=== PATIENT | male | born 1935 | race Caucasian/White ===

== ENCOUNTER 2019-09-01 13:18 | Observation (INO) ==
[2019-09-01] MEDS ORDERED: LACTATED RINGERS 500 ML IV ONE (13:57)
[2019-09-01 14:15] LABS: Basophils # 0.1 10*3/uL (0.0-0.2); Basophils % 0.9 % (0.0-0.8); Eosinophils # 0.1 10*3/uL (0.0-0.87); Hematocrit 39.9 VOL% (42.0-52.0); Hemoglobin 13.1 GM/DL (14.0-18.0); Immature Granulocytes Absolute 0.07 #; Lymphocytes # 1.2 10*3/uL (1.4-4.0); Lymphocytes % 17.8 % (21.2-54.2); Mean Corpuscular HGB Conc 32.8 GM/DL (32-36); Mean Corpuscular Volume 91.9 FL (87-102); Mean Platelet Volume 10.5 FL (9.6-12.0); Monocytes % 12.1 % (1.7-12.7); Neutrophils % 67.2 % (38.7-73.9); Platelet Count 199 T/CUMM (130-400); Red Blood Count 4.34 MC/CUMM (3.8-5.5); Red Cell Distribution Width 13.4 % (9.3-17.3); White Blood Count 6.9 T/CUMM (4-12)
[2019-09-01 14:29] LABS: Albumin 3.6 G/DL (3.4-5.0); Bilirubin,Total 0.4 MG/DL (0.2-1.0); Calcium 8.6 MG/DL (8.5-10.1); Osmolality,Calculated 286.5 MOS/KG (273-304); Total Protein 6.8 G/DL (6.4-8.3)
[2019-09-01] MEDS ORDERED: ACETAMINOPHEN 325 MG TABLET PO PRN (15:32)
[2019-09-01] MEDS ORDERED: SODIUM CHLORIDE 0.45% 1,000 ML IV SCH (16:00)
[2019-09-01 16:46] LABS: Apearance,Urine CLEAR (Clear); Bacteria,Urine Occasional /HPF (Few); Bilirubin,Urine Negative (Negative); Blood, Urine Negative (Negative); Glucose,Urine (UA) Negative (Negative); Hyaline Casts,Urine 5 /LPF (0-3); Ketones,Urine Negative (Negative); Mucus,Urine Occasional /LPF (Occasional); Nitrite,Urine Negative (Negative); Protein,Urine Negative; RBC,Urine 3 /HPF (0-4); Squamous Epithelial Cell,Urine Occasional /HPF (0-10); Urine Color Straw (Yellow); Urine Specific Gravity 1.006 (1.001-1.035); Urine Urobilinogen < 2.0 EU/DL (0.2-1.0); WBC,Urine 1 /HPF (0-6)
[2019-09-01] MEDS ORDERED: INFLUENZA VIRUS VACCINE 0.5 ML SYRINGE IM ONE (17:25)
[2019-09-01] MEDS: HEPARIN 5,000 UNIT/1 ML VIAL SUBCUT SCH (17:34)
[2019-09-01] MEDS: KETOROLAC 0.5% OPH SOLN 5 ML BOTTLE LEFT EYE SCH ×2 (17:44→21:14)
[2019-09-01] MEDS ORDERED: PANTOPRAZOLE 40 MG TABLET PO SCH (21:00)
[2019-09-01] MEDS ORDERED: ATORVASTATIN 10 MG TABLET PO SCH (21:00)
[2019-09-01] MEDS ORDERED: DONEPEZIL 10 MG TABLET PO SCH (21:00)
[2019-09-01] MEDS: MAGNESIUM CHLORIDE 64 MG TABLET PO SCH (21:12)
[2019-09-01] MEDS: DOCUSATE SODIUM 100 MG CAPSULE PO SCH (21:13)
[2019-09-01] MEDS: MEMANTINE 10 MG TABLET PO SCH (21:13)
[2019-09-02] MEDS: HEPARIN 5,000 UNIT/1 ML VIAL SUBCUT SCH ×2 (00:43→09:11)
[2019-09-02 04:48] LABS: Basophils % 0.6 % (0.0-0.8); Eosinophils # 0.1 10*3/uL (0.0-0.87); Eosinophils % 1.1 % (0.00-10.9); Hematocrit 35.4 VOL% (42.0-52.0); Hemoglobin 11.4 GM/DL (14.0-18.0); Immature Granulocytes % 0.5 %; Immature Granulocytes Absolute 0.03 #; Lymphocytes # 1.6 10*3/uL (1.4-4.0); Lymphocytes % 24.3 % (21.2-54.2); Mean Corpuscular HGB Conc 32.2 GM/DL (32-36); Mean Corpuscular Volume 92.9 FL (87-102); Mean Platelet Volume 10.7 FL (9.6-12.0); Monocytes % 13.4 % (1.7-12.7); Neutrophils % 60.1 % (38.7-73.9); Platelet Count 168 T/CUMM (130-400); Red Blood Count 3.81 MC/CUMM (3.8-5.5); Red Cell Distribution Width 13.5 % (9.3-17.3); White Blood Count 6.5 T/CUMM (4-12)
[2019-09-02 05:39] LABS: Alanine Aminotransferase 16 U/L (16-61); Albumin 2.9 G/DL (3.4-5.0); Alkaline Phosphatase 76 U/L (45-117); Aspartate Amino Transferase 14 U/L (0-37); Bilirubin,Total < 0.39 MG/DL (0.2-1.0); Blood Urea Nitrogen 23 MG/DL (7-18); Calcium 8.1 MG/DL (8.5-10.1); Estimated Glom Filtration Rate 59 ML/MIN; Glucose 128 MG/DL (74-106); HDL Cholesterol 48 MG/DL (40-60); Osmolality,Calculated 280.7 MOS/KG (273-304); Risk Ratio 2.63; Total Protein 5.9 G/DL (6.4-8.3); Triglycerides 112 MG/DL (2-150); VLDL CHOLESTEROL 22.4 MG/DL
[2019-09-02] MEDS ORDERED: LEVOTHYROXINE 75 MCG TABLET PO SCH (06:30)
[2019-09-02] MEDS ORDERED: ASPIRIN EC 325 MG TABLET PO SCH (09:00)
[2019-09-02] MEDS ORDERED: PANTOPRAZOLE 40 MG TABLET PO SCH (09:00)
[2019-09-02] MEDS ORDERED: carvediloL 3.125 MG TABLET PO SCH (09:00)
[2019-09-02] MEDS: KETOROLAC 0.5% OPH SOLN 5 ML BOTTLE LEFT EYE SCH (09:11)
[2019-09-02] MEDS: DOCUSATE SODIUM 100 MG CAPSULE PO SCH (09:12)
[2019-09-02] MEDS: MAGNESIUM CHLORIDE 64 MG TABLET PO SCH (09:12)
[2019-09-02] MEDS: MEMANTINE 10 MG TABLET PO SCH (09:12)
[2019-09-02 12:34] VITALS: BP 137/70
== END 2019-09-02 12:58 | disposition home or self-care (01) ==
LOC: N.EDINP 13:18 → N.ED 13:18 → N.EDINP 17:00 → N.TELES 17:17
PROVIDERS: ADMIT Internal Medicine; ATTEND Internal Medicine

== ENCOUNTER 2021-10-09 19:28 | Observation (INO) ==
[2021-10-09] MEDS ORDERED: SODIUM CHLORIDE 0.9% 500 ML IV STA (20:13)
[2021-10-09 21:12] LABS: Basophils % 0.6 % (0.0-0.8); Eosinophils # 0.1 10*3/uL (0.0-0.87); Hematocrit 39.4 VOL% (42.0-52.0); Immature Granulocytes % 0.9 %; Immature Granulocytes Absolute 0.06 #; Lymphocytes # 1.2 10*3/uL (1.4-4.0); Lymphocytes % 19.2 % (21.2-54.2); Mean Corpuscular Volume 89.5 FL (87-102); Mean Platelet Volume 10.7 FL (9.6-12.0); Monocytes % 13.4 % (1.7-12.7); Neutrophils % 63.9 % (38.7-73.9); Platelet Count 197 T/CUMM (130-400); Red Cell Distribution Width 13.2 % (9.3-17.3); White Blood Count 6.5 T/CUMM (4-12)
[2021-10-09 21:21] LABS: Bilirubin,Urine Negative (Negative); Blood, Urine Negative (Negative); Glucose,Urine (UA) Negative (Negative); Hyaline Casts,Urine 1 /LPF (0-3); Ketones,Urine Negative (Negative); Nitrite,Urine Negative (Negative); Protein,Urine Negative; RBC,Urine 2 /HPF (0-4); Urine Appearance CLEAR (Clear); Urine Color Straw (Yellow); Urine Specific Gravity 1.008 (1.001-1.035); Urine Urobilinogen < 2.0 EU/DL (0.2-1.0)
[2021-10-09 21:37] LABS: Alanine Aminotransferase 17 U/L (16-61); Albumin 3.3 G/DL (3.4-5.0); Alkaline Phosphatase 88 U/L (45-117); Aspartate Amino Transferase 16 U/L (0-37); Blood Urea Nitrogen 28 MG/DL (7-18); Calcium 8.7 MG/DL (8.5-10.1); Carbon Dioxide 26 MMOL/L (21-32); Estimated Glom Filtration Rate 43 ML/MIN; Glucose 131 MG/DL (74-106); Osmolality,Calculated 286.4 MOS/KG (273-304); Sodium 140 MMOL/L (136-145); Total Protein 6.7 G/DL (6.4-8.2)
[2021-10-09 21:43] LABS: Barbiturates Screen,Urine Negative (Negative); Benzodiazepines Screen,Urine Negative (Negative); Cannabinoid Screen,Urine Negative (Negative); Opiate Screen,Urine Negative (Negative); Phencyclidine Screen,Urine Negative (Negative)
[2021-10-09] MEDS ORDERED: LACTATED RINGERS 500 ML IV ONE (22:35)
[2021-10-09] MEDS ORDERED: SODIUM CHLORIDE 0.9% 1,000 ML IV STA (22:35)
[2021-10-10] MEDS ORDERED: ENOXAPARIN 100 MG/ML SYRINGE SUBCUT STA (00:45)
[2021-10-10] MEDS ORDERED: ONDANSETRON 4 MG/2 ML VIAL IV PRN (02:17)
[2021-10-10] MEDS ORDERED: ACETAMINOPHEN 325 MG TABLET PO PRN (02:17)
[2021-10-10] MEDS ORDERED: DEXTROSE 50% 25 GM/50 ML VIAL IV PRN (02:24)
[2021-10-10] MEDS ORDERED: GLUCAGON 1 MG VIAL IM PRN (02:24)
[2021-10-10] MEDS: LEVOTHYROXINE 75 MCG TABLET PO SCH (06:04)
[2021-10-10 07:08] LABS: Basophils % 0.5 % (0.0-0.8); Eosinophils # 0.2 10*3/uL (0.0-0.87); Eosinophils % 2.6 % (0.00-10.9); Hematocrit 35.3 VOL% (42.0-52.0); Hemoglobin 11.6 GM/DL (14.0-18.0); Immature Granulocytes % 0.7 %; Immature Granulocytes Absolute 0.04 #; Lymphocytes # 1.3 10*3/uL (1.4-4.0); Lymphocytes % 22.1 % (21.2-54.2); Mean Corpuscular HGB Conc 32.9 GM/DL (32-36); Mean Corpuscular Volume 89.4 FL (87-102); Mean Platelet Volume 10.6 FL (9.6-12.0); Neutrophils % 62.1 % (38.7-73.9); Platelet Count 178 T/CUMM (130-400); Red Blood Count 3.95 MC/CUMM (3.8-5.5); Red Cell Distribution Width 13.1 % (9.3-17.3); White Blood Count 5.8 T/CUMM (4-12)
[2021-10-10 07:30] LABS: Albumin 2.8 G/DL (3.4-5.0); Bilirubin,Total 0.6 MG/DL (0.20-1.00); Calcium 8.3 MG/DL (8.5-10.1); Osmolality,Calculated 284.3 MOS/KG (273-304); Potassium 3.8 MMOL/L (3.5-5.1); Total Protein 5.7 G/DL (6.4-8.2)
[2021-10-10] MEDS: lisinopriL 2.5 MG TABLET PO SCH (08:58)
[2021-10-10] MEDS: MAGNESIUM CHLORIDE 64 MG TABLET PO SCH (08:58)
[2021-10-10] MEDS: NON-FORMULARY MEDICATION PO SCH (08:59)
[2021-10-10] MEDS: carvediloL 3.125 MG TABLET PO SCH ×2 (08:59→21:32)
[2021-10-10] MEDS: POTASSIUM CHLORIDE 10 MEQ TABLET PO SCH (08:59)
[2021-10-10] MEDS: CYANOCOBALAMIN 500 MCG TABLET PO SCH (08:59)
[2021-10-10] MEDS: PANTOPRAZOLE 40 MG TABLET PO SCH (08:59)
[2021-10-10] MEDS: INSULIN REGULAR 100 UNIT/ML SUBCUT SCH ×4 (09:00→20:10)
[2021-10-10] MEDS: APIXABAN 5 MG TABLET PO SCH ×2 (10:37→21:32)
[2021-10-10] MEDS ORDERED: MAGNESIUM SULF RIDER 2 GM/50 ML PREMIX IV PRN (20:50)
[2021-10-10] MEDS ORDERED: MAGNESIUM SULF RIDER 4 GM/100 ML PREMIX IV PRN (20:50)
[2021-10-10] MEDS ORDERED: ATORVASTATIN 10 MG TABLET PO SCH (21:00)
[2021-10-11] MEDS: LEVOTHYROXINE 75 MCG TABLET PO SCH (06:12)
[2021-10-11] MEDS: NON-FORMULARY MEDICATION PO SCH (08:16)
[2021-10-11] MEDS: PANTOPRAZOLE 40 MG TABLET PO SCH (08:35)
[2021-10-11] MEDS: lisinopriL 2.5 MG TABLET PO SCH (08:35)
[2021-10-11] MEDS: CYANOCOBALAMIN 500 MCG TABLET PO SCH (08:35)
[2021-10-11] MEDS: APIXABAN 5 MG TABLET PO SCH (08:35)
[2021-10-11] MEDS: POTASSIUM CHLORIDE 10 MEQ TABLET PO SCH (08:35)
[2021-10-11] MEDS: carvediloL 3.125 MG TABLET PO SCH (08:35)
[2021-10-11] MEDS: MAGNESIUM CHLORIDE 64 MG TABLET PO SCH (08:35)
[2021-10-11 08:36] LABS: Basophils % 0.5 % (0.0-0.8); Eosinophils # 0.1 10*3/uL (0.0-0.87); Eosinophils % 1.8 % (0.00-10.9); Hematocrit 40.9 VOL% (42.0-52.0); Hemoglobin 13.4 GM/DL (14.0-18.0); Immature Granulocytes % 0.8 %; Immature Granulocytes Absolute 0.06 #; Lymphocytes # 1.2 10*3/uL (1.4-4.0); Lymphocytes % 16.1 % (21.2-54.2); Mean Corpuscular HGB Conc 32.8 GM/DL (32-36); Mean Corpuscular Volume 90.7 FL (87-102); Mean Platelet Volume 10.4 FL (9.6-12.0); Monocytes % 10.4 % (1.7-12.7); Neutrophils % 70.4 % (38.7-73.9); Platelet Count 212 T/CUMM (130-400); Red Blood Count 4.51 MC/CUMM (3.8-5.5); Red Cell Distribution Width 13.1 % (9.3-17.3); White Blood Count 7.4 T/CUMM (4-12)
[2021-10-11] MEDS: INSULIN REGULAR 100 UNIT/ML SUBCUT SCH ×2 (08:59→12:03)
[2021-10-11 09:00] LABS: Calcium 8.6 MG/DL (8.5-10.1); Osmolality,Calculated 279.5 MOS/KG (273-304); Potassium 4.1 MMOL/L (3.5-5.1)
[2021-10-11 09:02] LABS: Risk Ratio 2.92; VLDL Cholesterol 23.4 MG/DL
[2021-10-11] MEDS ORDERED: SODIUM CHLORIDE 0.45% 500 ML IV ONE (10:04)
[2021-10-11] MEDS ORDERED: SODIUM CHLORIDE 0.9% 250 ML IV ONE (10:05)
[2021-10-11] MEDS ORDERED: SODIUM CHLORIDE 0.9% 500 ML IV ONE (10:35)
[2021-10-11 11:19] LABS: Folate 12.89 NG/ML (5.38-24.0)
[2021-10-11 12:19] VITALS: BP 122/83
[2021-10-11 12:24] LABS: % Iron Saturation 19.3 % (18-50)
[2021-10-12] MEDS ORDERED: MULTIVITAMIN (CENTRUM) TABLET PO SCH (09:00)
[2021-10-17] MEDS ORDERED: APIXABAN 5 MG TABLET PO SCH (09:00)
== END 2021-10-11 12:46 | disposition home or self-care (01) ==
LOC: EDBD → EDUNIT# → N.ED 19:28 → N.EDINP 19:28 → SUATTDRO 10-10 02:17 → N.TELEN 10-10 03:28
PROVIDERS: ADMIT Internal Medicine; ATTEND Internal Medicine